=== PATIENT | male | born 1975 | race Hispanic/Latino ===

== ENCOUNTER 2019-08-07 11:35 | Emergency (ER) | payer OTHER, SELFPAY ==
[2019-08-07 11:49] VITALS: BP 135/77; PULSE 62; RESP 16; TEMP 37; O2SAT 98
--- NOTE | 2019-08-07 11:55 | ED.GENADULT ---
HPI - General Adult General Chief complaint: Extremity Problem,Nontraumatic Stated complaint: Left toe pain Time Seen by Provider: 08/07/19 11:55 Source: patient Mode of arrival: ambulatory Limitations: no limitations History of Present Illness HPI narrative: 44-year-old male patient presents to the [facility] with complaints of left great toe pain since yesterday. Patient denies any injury. Patient states he noticed some swelling and pain to the left toe. Patient denies any history of diabetes. Denies take anything for the pain so far. Patient states that he did sleep with his foot out from under the covers yesterday because even the covers were causing some pain. Related Data Allergies Allergy/AdvReac Type Severity Reaction Status Date / Time No Known Allergies Allergy Verified 08/07/19 11:54 Review of Systems Review of Systems: Narrative: CONSTITUTIONAL: Denies fever, chills, or sweats. EYES: Denies visual changes, redness, or discharge. ENT: Denies rhinorrhea, congestion, sore throat, or otalgia. CARDIOVASCULAR: Denies chest pain, palpitations, or edema. RESPIRATORY: Denies cough or dyspnea. GASTROINTESTINAL: Denies abdominal pain, nausea, vomiting, or diarrhea. GENITOURINARY: Denies dysuria or hematuria. SKIN: Denies rash or itching. MUSCULOSKELETAL: Denies back pain, joint pain, or myalgia. Positive left great toe pain since yesterday NEUROLOGIC: Denies headache, numbness, or weakness. PSYCHIATRIC: Denies anxiety or depression. PMFSH Comments At the time of my signature I agree with nursing past medical history, surgical, social, and family history. There is no relevant family history pertinent to the presenting complaint. Exam Narrative: Exam Narrative: GENERAL: Well-appearing, well-nourished, and in no acute distress. HEAD: Normocephalic, atraumatic. EYES: PERRLA and EOMI. ENT: Nares clear, no rhinorrhea or epistaxis. Mucous membranes moist. NECK: Supple. No lymphadenopathy CHEST: Clear to auscultation. No respiratory distress. HEART: Regular rate and rhythm. No murmur heard. Normal peripheral pulses. ABDOMEN: Soft, nontender, nondistended, normal active bowel sounds. EXTREMITIES: Patient able to bear weight and ambulate but has pain to the left great toe. No surface trauma, ecchymosis, lesions, ulcers or break in skin integrity. Patient does have some erythema and swelling noted to the left great toe. There is some tenderness noted on palpation to the toe. There is no obvious warmth noted and there is no obvious injury noted at this time. The L foot is without obvious asymmetry or deformity when compared to the R foot. No bony step-off, Normal plantar/dorsiflexion, inversion/eversion. Distal motor and neurovascular status are intact SKIN: Warm, dry, no rash. NEURO: No focal deficits. Alert and oriented x3. Course Vital Signs Vital signs: Vital Signs Temperature 37.0 C 08/07/19 11:49 Pulse Rate 62 08/07/19 11:49 Respiratory Rate 16 08/07/19 11:49 Blood Pressure 135/77 08/07/19 11:49 Pulse Oximetry 98 08/07/19 11:49 Temperature 37.0 C 08/07/19 11:49 Pulse Rate 62 08/07/19 11:49 Respiratory Rate 16 08/07/19 11:49 Blood Pressure 135/77 08/07/19 11:49 Pulse Oximetry 98 08/07/19 11:49 Vital signs reviewed. Medical Decision Making Differential Diagnosis Differential Diagnosis: Differential diagnosis: Foot fracture, crush injury, compartment syndrome, contusion, sprain, tendinitis,lisfranc sprain or fracture, avulsion fracture, grown toenail, diabetic ulcer. Notified patient that I do believe this is most likely a gout attack to the toe. Discussed with him that we will go ahead and put him on some medication to help with the pain and that this could last anywhere from a week to 10 days. Discussed with patient that if he has continuing worsening symptoms he would need to follow-up with his primary doctor. Patient verbalized understanding denies any other questions or concern
== END 2019-08-07 12:12 | disposition home or self-care (01) ==
PROVIDERS: Emergency Provider Nurse Practitioner Family
DX: M10.9 Gout, unspecified (principal)
CPT/HCPCS: 99203; G0463